=== PATIENT | male | born 1985 | race Caucasian/White ===

== ENCOUNTER 2016-11-24 08:20 | Emergency (ER) | payer BC ==
[2016-11-24 08:29] VITALS: BP 121/90
--- NOTE | 2016-11-24 09:01 | UC ---
Complaint Male HPI - HPI Summary HPI Summary: "Pts was hit in groin by his dogs head on 11/23/16. c/o pain in groin and scrotal edema." he is also concerned about the swelling in his penis that has decreased by about 75% since he first noted it at 6:30 this morning. there is no pain in his penis at this time. testicular swelling and pain has decreased significantly to minimal amt at this time of 06/29. he has been checked for testicular torsion in past when he had inguinal hernia and states that the pain is nothing even clos eto that pain. of note, he took a work out supplement this morning that he takes before working out with nitric oxide it in. Questions if that helped decrease the swelling. I have advised him to refrain from using these supplements. - History of Current Complaint Chief Complaint: UCTrauma Stated Complaint: PERSONAL Time Seen by Provider: 11/24/16 08:39 - Allergies/Home Medications Allergies/Adverse Reactions: Allergies Allergy/AdvReac Type Severity Reaction Status Date / Time hay fever Allergy Eyes Uncoded 11/24/16 08:28 Itchy/Swollen/Red/Watery PMH/Surg Hx/FS Hx/Imm Hx Previously Healthy: Yes - Surgical History Surgical History: Yes Surgery Procedure, Year, and Place: ear tubes as child - Family History Known Family History: Positive: Hypertension - Social History Alcohol Use: Weekly Alcohol Amount: 6 beers Substance Use Type: None Substance Use Comment - Amount & Last Used: 20-30 ozs coffee per day Smoking Status (MU): Never Smoked Tobacco Review of Systems Constitutional: Negative Skin: Negative Eyes: Negative ENT: Negative Respiratory: Negative Cardiovascular: Negative Gastrointestinal: Negative Genitourinary: Negative, Other - see above. Motor: Negative Neurovascular: Negative Musculoskeletal: Negative Neurological: Negative Psychological: Negative All Other Systems Reviewed And Are Negative: Yes Physical Exam Triage Information Reviewed: Yes Appearance: Well-Appearing, No Pain Distress, Well-Nourished - very pleasant Vital Signs: Initial Vital Signs Temp 97.8 F 11/24/16 08:22 Pulse 98 11/24/16 08:22 Resp 14 11/24/16 08:22 BP 121/90 11/24/16 08:22 Pulse Ox 99 11/24/16 08:22 Vital Signs Reviewed: Yes Eye Exam: Normal ENT Exam: Normal Respiratory Exam: Normal Respiratory: Positive: Lungs clear, Normal breath sounds Cardiovascular Exam: Normal Cardiovascular: Positive: RRR, No Murmur, Pulses Normal Abdominal Exam: Normal Abdomen Description: Positive: Nontender, Soft Musculoskeletal Exam: Normal Neurological Exam: Normal Psychological Exam: Normal Skin Exam: Normal - Additional Comments exam with creative arts therapist Ana Austin RN present. there is mild generalized swelling of penis with good blood flow and brisk CR. there is no tenderness. flacid. Scrotum with minimal swelling if any. minimal tenderness of left testicle. testicles intact without masses. cool to touch. no edema. Complaint Male Course/Dx - Course Course Of Treatment: Offered ER transfer to check US to r/o torsion and vascular compromise but he declines. He is agreeable to go if sx do not resolve by tomorrow or worsen. Adv to avoid the OTC work out supplement. - Differential Dx/Diagnosis Differential Diagnosis/HQI/PQRI: Testicular Torsion, Trauma Provider Diagnoses: swelling of penis, testicular trauma Discharge - Discharge Plan Condition: Stable Disposition: HOME Patient Education Materials: Testicle Pain (ED), Scrotal Pain (ED) Referrals: Maria E Frank MD [Primary Care Provider] - 2 Days Additional Instructions: If your symptoms worsen today or no better by tomorrow, please go to the ER for ultrasound and further evaluation. Ice with towel barrier for short periods of time is recommended as well as ibuprofen 600-800mgs every 8 hrs.
== END 2016-11-24 09:07 | disposition home or self-care (01) ==
LOC: UCCORT 08:20
DX: N48.89 Other specified disorders of penis (principal); S39.848A Other specified injuries of external genitals, initial encounter; W54.1XXA Struck by dog, initial encounter; Y93.9 Activity, unspecified; Y92.9 Unspecified place or not applicable; Y99.9 Unspecified external cause status
CPT/HCPCS: 99201; G0463

== ENCOUNTER 2017-01-09 13:02 | Emergency (ER) | payer BC ==
[2017-01-09 13:33] VITALS: BP 110/74
--- NOTE | 2017-01-09 14:06 | ED ---
Skin Complaint - HPI Summary HPI Summary: left posterior scalp swelling and back of the neck swelling. This occurred and then resolved. He saw pcp which did not worry about it. It has resumed and now the scalp swelling is non tender but the neck swelling is tender. No other skin complaints. no other adenopathy. No ear or throat pain. no scalp dryness or psoriasis. - History of Current Complaint Chief Complaint: UCGeneralIllness Time Seen by Provider: 01/09/17 13:53 Stated Complaint: LUMP ON BACK NECK Hx Obtained From: Patient Onset/Duration: Started Days Ago Timing: Constant, Lasting Days Onset Severity: Mild Current Severity: Moderate Skin Location: Discrete, Neck Aggravating Symptom(s): Touch Alleviating Symptom(s): Nothing Associated Signs & Symptoms: Tenderness - Allergy/Home Medications Allergies/Adverse Reactions: Allergies Allergy/AdvReac Type Severity Reaction Status Date / Time hay fever Allergy Eyes Uncoded 01/09/17 13:29 Itchy/Swollen/Red/Watery PMH/Surg Hx/FS Hx/Imm Hx Previously Healthy: Yes - Surgical History Surgery Procedure, Year, and Place: ear tubes as child Infectious Disease History: No Infectious Disease History: Denies: Traveled Outside the [place] in Last 30 Days - Family History Known Family History: Positive: Hypertension - Social History Occupation: Employed Full-time Alcohol Use: Weekly Alcohol Amount: 6 beers Substance Use Type: Reports: None Substance Use Comment - Amount & Last Used: 20-30 ozs coffee per day Smoking Status (MU): Never Smoked Tobacco Review of Systems Positive: Other - post neck adenopathy. All Other Systems Reviewed And Are Negative: Yes Physical Exam Triage Information Reviewed: Yes Vital Signs On Initial Exam: Initial Vitals Temp Pulse Resp BP Pulse Ox 98.2 F 66 16 110/74 100 01/09/17 13:26 01/09/17 13:26 01/09/17 13:26 01/09/17 13:26 01/09/17 13:26 Vital Signs Reviewed: Yes Appearance: Positive: Well-Appearing, No Pain Distress, Well-Nourished Skin: Positive: Other - Post right occiput swelling which is soft and non tender. posterior neck right nape swelling and tenderness and mild redness. no fluctuance or pointing. no anterior adenopathy. Eyes: Positive: Normal ENT: Positive: Pharynx normal, TMs normal. Negative: Pharyngeal erythema, Nasal congestion, Nasal drainage, TM bulging, TM dull, TM red, Tonsillar swelling, Tonsillar exudate, Trismus, Muffled/hoarse voice Neck: Positive: Tenderness @, Enlarged Nodes @ - One larger node on the right nape.. Negative: Nuchal Rigidity Respiratory/Lung Sounds: Positive: Clear to Auscultation Cardiovascular: Positive: Normal Abdomen Description: Positive: Nontender Musculoskeletal: Positive: Normal Neurological: Positive: Normal Psychiatric: Positive: Normal Diagnostics - Vital Signs Vital Signs Temp Pulse Resp BP Pulse Ox 01/09/17 13:26 98.2 F 66 16 110/74 100 - Laboratory Lab Statement: Any lab studies that have been ordered have been reviewed, and results considered in the medical decision making process. Course/Dx - Differential Diagnoses - Skin Complaint Differential Diagnoses: Abscess, Foreign Body, Head Lice, Douglas-Zac Syndrome, Systemic Illness, Tick Born Illness - Diagnoses Provider Diagnoses: Adenitis, acute Discharge - Discharge Plan Condition: Good Disposition: HOME Prescriptions: Amoxicillin/Clavulanate TAB* [Augmentin TAB 875*] 875 mg PO BID #20 tab Patient Education Materials: Adenitis (ED) Referrals: Domo Meza MD [Medical Doctor] - Jori Crook MD [Medical Doctor] - Additional Instructions: Dr crook is a primary care doctor to try to see.
== END 2017-01-09 14:10 | disposition home or self-care (01) ==
LOC: UCCORT 13:02
DX: L04.9 Acute lymphadenitis, unspecified (principal)
CPT/HCPCS: 99212; G0463

== ENCOUNTER 2019-06-02 13:13 | Emergency (ER) | payer BC ==
--- OUTSIDE RECORDS SUMMARY | 2019-06-02 13:31 | XMS REPORT | Continuity of Care Document ---
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 Problems Active Problems Provider Date Idiopathic aseptic necrosis of unspecified femur Low Amezcua MD Onset: Arthralgia of the pelvic region and thigh Low Amezcua MD Onset: 05/06/2018 Idiopathic aseptic necrosis of right femur Low Amezcua MD Onset: 03/27/2018 Social History Type Date Description Comments Sex Unknown Tobacco Use Start: Unknown Never Smoked Cigarettes Tobacco Use Start: Unknown Never Smoked Cigars Tobacco Use Start: Unknown Never Smoked A Pipe Smokeless Tobacco Never Used Smokeless Tobacco ETOH Use Denies alcohol use Tobacco Use Start: Unknown Patient has never smoked Recreational Drug Use Denies Drug Use Smoking Status Reviewed: 04/28/19 Patient has never smoked Exercise Type/Frequency Exercises sporadically Allergies, Adverse Reactions, Alerts Active Allergies Reaction Severity Comments Date Itraconazole rash 01/06/2018 Seasonal 04/28/2019 Inactive Allergies NKDA 11/11/2012 Medications Active Medications SIG Qnty Indications Ordering Provider Date Armodafinil TK 1 T PO qam Unknown 50mg Tablets After Breakfast. MDD 1 (not taking 04/28/19) Ibuprofen 2 by mouth as Unknown 200mg Tablets needed Benadryl Allergy 1-2 by mouth as Unknown 25mg needed Tablets Immunizations Description No Information Available Vital Signs Date Vital Result Comment 04/28/2019 11:07am Height 66 inches 5'6" Weight 168.50 lb Heart Rate 90 /min BP Systolic Sitting 120 mmHg Rue reg cuff BP Diastolic Sitting 90 mmHg Rue reg cuff O2 % BldC Oximetry 98 % On Ra BMI (Body Mass Index) 27.2 kg/m2 04/02/2019 2:22pm Height 66 inches 5'6" Weight 169.00 lb Heart Rate 114 /min BP Systolic Sitting 130 mmHg BP Diastolic Sitting 88 mmHg O2 % BldC Oximetry 98 % BMI (Body Mass Index) 27.3 kg/m2 Results Description No Information Available Procedures Description No Information Available Medical Devices Description No Information Available Encounters Type Date Location Provider Dx Diagnosis Office Visit 04/28/2019 [facility] G47.33 Obstructive sleep 11:30a [facility]ia apnea (adult) [facility] (pediatric) R53.83 Other fatigue Office Visit 04/02/2019 3:00p [facility] G47.9 Sleep disorder, [facility] unspecified [facility] R53.83 Other fatigue Assessments Date Code Description Provider 04/28/2019 G47.33 Obstructive sleep apnea (adult) (pediatric) Roxann Sofia NP 04/28/2019 R53.83 Other fatigue Roxann Sofia NP 04/02/2019 G47.9 Sleep disorder, unspecified Josiane Jade MD 04/02/2019 R53.83 Other fatigue Josiane Jade MD Plan of Treatment Future Appointment(s):06/11/2019 11:30 am - Roxann Sofia NP at [facility]04/28/2019 - Roxann Sofia NPG47.33 Obstructive sleep apnea (adult) (pediatric)Follow up:6-8 weeksRecommendations: You have mild sleep apnea on your sleep study. We discussed possible treatment options including CPAP and the oral appliance for sleep apnea. Please let us know which treatment option you would like topursue and we will send on the orders. If you have difficulty with your equipment, or need to replace your mask or hoses, please contact your homecare agency. If you have any further questions, please call the [facility] at [phone] If you have any sleepiness while driving you MUST avoid operating a vehicle or machinery. If you feel tired while driving cable puller and take a nap or switch drivers. If you know you are sleepy and need to go somewhere, arrange for a ride or use public transportation. It is very important to not risk your safety or the safety of others.R53.83 Other fatigue Functional Status Description No Information Available Mental Status Description No Information Available Referrals Description No Information Available
[2019-06-02 13:39] VITALS: BP 116/79
--- NOTE | 2019-06-02 13:51 | UC ---
Ear Complaint HPI - HPI Summary HPI Summary: right ear pain x 7 days pain is 5 out of 10 , worse by touching the ear, nothing makes it better, feels congested no fever, no chills, - History of Current Complaint Chief Complaint: UCEar Stated Complaint: RT EAR COMP Time Seen by Provider: 06/02/19 13:28 Hx Obtained From: Patient Onset/Duration: Gradual Onset, Lasting Days - 7, Still Present Severity Initially: Moderate Severity Currently: Moderate Pain Intensity: 5 Aggravating Factors: Other - touch Alleviating Factors: Nothing Associated Signs/Symptoms: Negative: Discharge, Hearing Loss, Foreign Body Sensation, Trauma to Ear, Swelling @, URI Symptoms - Allergies/Home Medications Allergies/Adverse Reactions: Allergies Allergy/AdvReac Type Severity Reaction Status Date / Time itraconazole Allergy Rash Verified 06/02/19 13:40 hay fever Allergy Eyes Uncoded 06/02/19 13:40 Itchy/Swollen/Red/Watery PMH/Surg Hx/FS Hx/Imm Hx Previously Healthy: Yes - Surgical History Surgical History: Yes Surgery Procedure, Year, and Place: Right [facility], [facility], [place]; ear tubes as child; WISDOM TEETH - Family History Known Family History: Positive: Hypertension - Social History Alcohol Use: Occasionally Alcohol Amount: 6 beers Substance Use Type: None Substance Use Comment - Amount & Last Used: 20-30 ozs coffee per day Smoking Status (MU): Never Smoked Tobacco - Immunization History Most Recent Influenza Vaccination: Not the Season Review of Systems All Other Systems Reviewed And Are Negative: Yes ENT: Positive: Ear Ache Is Patient Immunocompromised?: No Physical Exam Triage Information Reviewed: Yes Appearance: Well-Appearing, No Pain Distress, Well-Nourished Vital Signs: Initial Vital Signs Temp 98.7 F 06/02/19 13:36 Pulse 72 06/02/19 13:36 Resp 16 06/02/19 13:36 BP 116/79 06/02/19 13:36 Pulse Ox 100 06/02/19 13:36 Vital Signs Reviewed: Yes Eye Exam: Normal Eyes: Positive: Conjunctiva Clear ENT: Positive: Normal ENT inspection, Hearing grossly normal, Pharynx normal, TMs normal. Negative: Pharyngeal erythema, Nasal congestion, Nasal drainage, TM bulging, TM dull, TM red Neck exam: Normal Neck: Positive: Supple, Nontender, No Lymphadenopathy Respiratory: Positive: Chest non-tender, Lungs clear, Normal breath sounds Cardiovascular: Positive: RRR, No Murmur, Pulses Normal Ear Complaint Course/Dx - Differential Dx/Diagnosis Provider Diagnosis: Otalgia, right ear Discharge ED - Sign-Out/Discharge Documenting (check all that apply): Patient Departure All imaging exams completed and their final reports reviewed: No Studies - Discharge Plan Condition: Stable Disposition: HOME Patient Education Materials: Earache (ED) Referrals: Romeo Rivera MD [Primary Care Provider] - If Needed Additional Instructions: no ear infection noted ? pressure behind the ear drum may try Flonase OTC nasal spray daily take Tylenol as needed for pain follow up as needed - Billing Disposition and Condition Condition: STABLE Disposition: Home
== END 2019-06-02 13:52 | disposition home or self-care (01) ==
LOC: UCCORT 13:13
DX: H92.01 Otalgia, right ear (principal); Z88.8 Allergy status to other drugs, medicaments and biological substances; Z91.09 Other allergy status, other than to drugs and biological substances
CPT/HCPCS: 99211; G0463